=== PATIENT | female | born 1940 | race Caucasian/White ===

== ENCOUNTER 2019-04-30 14:37 | Emergency (ER) | payer MEDICARE ==
[~2019-04-30] VITALS: Ht 154.9 cm; Wt 49.9 kg
[2019-04-30 14:54] VITALS: BP 137/87
--- NOTE | 2019-04-30 16:15 | NUR ---
WRIST SPLINT VELCOR APPLIED.
--- NOTE | 2019-04-30 16:16 | NUR ---
Patient discharged to home in stable condition. Written and verbal after care instructions given. Patient verbalizes understanding of instruction.
== END 2019-04-30 16:16 | disposition home or self-care (01) ==
LOC: ER 14:40
DX: S52.592A Other fractures of lower end of left radius, initial encounter for closed fracture (principal); M54.9 Dorsalgia, unspecified; G89.29 Other chronic pain; Z98.890 Other specified postprocedural states; Z60.2 Problems related to living alone; X58.XXXA Exposure to other specified factors, initial encounter; Y93.89 Activity, other specified; Y92.89 Other specified places as the place of occurrence of the external cause; Y99.8 Other external cause status
CPT/HCPCS: 73090-TC

== ENCOUNTER 2019-08-29 21:09 | Emergency (ER) | payer MEDICARE ==
[~2019-08-29] VITALS: Ht 154.9 cm; Wt 47.6 kg
--- NOTE | 2019-08-29 21:40 | NUR ---
BIB SELF 78 YEAR OLD FEMALE C/O RIGHT ARM PAIN S/P GLF. -HEAD TRAUMA - LOC. ALERT AND ORIENTED X3, BREATHING EVEN AND UNALBORED WITH NO DISTRESS NOTED. NOTED WITH RIGHT ARM BANDAGE. WAITING TO BE SEEN BY
--- NOTE | 2019-08-29 22:31 | NUR ---
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
--- NOTE | 2019-08-29 23:47 | NUR ---
Sweta mckenna in [facility] - 08/29/19 at 2348 by CARLOS ENDORSED TO CONTINUE CHRISTIE
--- NOTE | 2019-08-29 23:48 | NUR ---
ENDORSED TO ROMEO TO CONTINUE CHRISTIE
--- NOTE | 2019-08-30 01:14 | NUR ---
Patient discharged to home in stable condition. Written and verbal after care instructions given. Patient verbalizes understanding of instruction.
[2019-08-30 01:17] VITALS: BP 134/77
--- NOTE | 2019-08-30 01:18 | NUR ---
PATIENT IS CALLING UBER FOR A RIDE.
== END 2019-08-30 01:18 | disposition home or self-care (01) ==
LOC: ER 21:10
DX: S52.591A Other fractures of lower end of right radius, initial encounter for closed fracture (principal); M54.6 Pain in thoracic spine; R05 Cough; G89.29 Other chronic pain; Z98.890 Other specified postprocedural states; Z60.2 Problems related to living alone; W18.39XA Other fall on same level, initial encounter; Y93.89 Activity, other specified; Y92.89 Other specified places as the place of occurrence of the external cause; Y99.8 Other external cause status
CPT/HCPCS: 71045-TC; 72074-TC; 73090-TC